=== PATIENT | female | born 1965 | race Caucasian/White ===

== ENCOUNTER 2016-07-29 11:42 | Outpatient (CLI) | payer MEDICAID | END 2016-07-29 11:43 | disposition home or self-care (01) | DX: Z00.00 Encounter for general adult medical examination without abnormal findings (principal) ==

== ENCOUNTER 2019-11-06 13:12 | Outpatient (CLI) | payer OTHER | END 2019-11-06 13:13 | disposition EMS.NT | LOC: EMS 13:12 | PROVIDERS: ATTEND Surgery | DX: R05 Cough (principal); X02.1XXA Exposure to smoke in controlled fire in building or structure, initial encounter; Y93.G3 Activity, cooking and baking; Y92.000 Kitchen of unspecified non-institutional (private) residence as the place of occurrence of the external cause ==

== ENCOUNTER 2023-03-18 08:54 | Outpatient (CLI) | payer MEDICAID | END 2023-03-18 08:55 | disposition home or self-care (01) | LOC: LAB 08:54 | PROVIDERS: ATTEND Physician Assistant | DX: Z79.01 Long term (current) use of anticoagulants (principal); Z95.1 Presence of aortocoronary bypass graft | CPT/HCPCS: 36416; 85610 ==

== ENCOUNTER 2023-04-15 08:45 | Outpatient (CLI) | payer MEDICAID ==
[2023-04-15 09:05] LABS: BASOPHILS # (AUTO) 0.1 10^3/uL (0.0-0.1); BASOPHILS % (AUTO) 1.3 %; EOSINOPHILS # (AUTO) 0.3 10^3/uL (0.0-0.7); EOSINOPHILS % (AUTO) 4.2 %; HCT - HEMATOCRIT 49.2 % (37.0-47.0); HGB - HEMOGLOBIN 15.4 g/dL (12.0-16.0); LYMPHOCYTES # (AUTO) 3.5 10^3/uL (1.5-3.5); LYMPHOCYTES % (AUTO) 45.9 %; MEAN CORPUSCULAR HEMOGLOBIN 27.6 pg (27.0-31.0); MEAN CORPUSCULAR HGB CONC 31.3 g/dL (32.0-36.0); MEAN CORPUSCULAR VOLUME 88.3 fL (81.0-99.0); MEAN PLATELET VOLUME 11.1 fL (7.9-10.8); MONOCYTES # (AUTO) 0.4 10^3/uL (0.0-1.0); MONOCYTES % (AUTO) 4.9 %; NEUTROPHILS # (AUTO) 3.3 10^3/uL (1.5-6.6); NEUTROPHILS % (AUTO) 43.4 %; PLT - PLATELET COUNT 265 10^3/uL (130-450); RED BLOOD COUNT 5.57 10^6/uL (4.20-5.40); RED CELL DISTRIBUTION WIDTH 12.6 % (12.0-15.0); WHITE BLOOD COUNT 7.5 x10^3/uL (4.8-10.8)
[2023-04-15 09:23] LABS: ALBUMIN 4.4 g/dL (3.2-5.5); ALBUMIN/GLOBULIN RATIO 1.7 (1.0-2.2); ALKALINE PHOSPHATASE 73 IU/L (42-121); ALT ALANINE AMINOTRANSFERASE 23 IU/L (10-60); AST ASPARTATE AMINOTRANSFERASE 19 IU/L (10-42); BILIRUBIN,TOTAL 0.7 mg/dL (0.2-1.0); BUN - BLOOD UREA NITROGEN 23 mg/dL (6-20); CALCIUM 9.8 mg/dL (8.5-10.3); CARBON DIOXIDE - CO2 25 mmol/L (21-32); CHLORIDE 106 mmol/L (101-111); CHOLESTEROL 212 mg/dL; GFR - MDRD 57 (>89); GLUCOSE 142 mg/dL (74-104); POTASSIUM 4.1 mmol/L (3.5-4.5); SODIUM 142 mmol/L (135-145); TRIGLYCERIDES 298 mg/dL (48-352); VLDL CHOLESTEROL 60 mg/dL
[2023-04-15 11:35] LABS: ESTIMATED AVERAGE GLUCOSE 157 mg/dL (70-100); HEMOGLOBIN A1c% 7.1 % (4.27-6.07)
[2023-04-16 00:03] LABS: CHOL/HDL RATIO 4.2 (<4.4); HDL CHOLESTEROL 50 mg/dL; LDL CHOLESTEROL,CALCULATED 102 mg/dL
== END 2023-04-15 08:46 | disposition home or self-care (01) ==
LOC: LAB 08:45
PROVIDERS: ATTEND Family Medicine
DX: E11.65 Type 2 diabetes mellitus with hyperglycemia (principal); I48.91 Unspecified atrial fibrillation; Z79.01 Long term (current) use of anticoagulants; Z95.1 Presence of aortocoronary bypass graft
CPT/HCPCS: 36415; 36416; 80050; 80061; 83036; 83721; 83880; 85610

== ENCOUNTER 2023-05-01 15:41 | Outpatient (CLI) | payer MEDICAID | END 2023-05-01 15:42 | disposition home or self-care (01) | LOC: LAB 15:41 | PROVIDERS: ATTEND Physician Assistant | DX: Z79.01 Long term (current) use of anticoagulants (principal); Z95.1 Presence of aortocoronary bypass graft | CPT/HCPCS: 36416; 85610 ==

== ENCOUNTER 2023-05-11 14:14 | Outpatient (CLI) | payer MEDICAID | END 2023-05-11 14:15 | disposition home or self-care (01) | LOC: LAB 14:14 | PROVIDERS: ATTEND Physician Assistant | DX: Z79.01 Long term (current) use of anticoagulants (principal); Z95.1 Presence of aortocoronary bypass graft | CPT/HCPCS: 36416; 85610 ==

== ENCOUNTER 2023-10-11 09:44 | Outpatient (CLI) | payer MEDICAID | END 2023-10-11 23:59 | disposition critical access hospital (66) | LOC: EMS 09:44 | PROVIDERS: ATTEND Emergency Medicine | DX: R07.89 Other chest pain (principal); M25.511 Pain in right shoulder; M54.2 Cervicalgia; R11.0 Nausea | CPT/HCPCS: A0425; A0427; A0999 ==

== ENCOUNTER 2023-10-11 10:04 | Emergency (ER) | payer MEDICAID ==
--- NOTE | 2023-10-11 10:30 | ED Physician Documentation ---
PD HPI CHEST PAIN - Stated complaint Stated Complaint: CP - Chief complaint Chief Complaint: Cardiac - History obtained from History obtained from: Patient - History of Present Illness Timing - onset: Last night Timing - duration: Hours (12) Timing - details: Gradual onset, Still present, Constant Quality: Tightness, Aching Location: Right chest, Right shoulder/arm Radiation: No: Back, Abdominal Improved by: No: Rest Worsened by: Movement, Palpation, Position (on right shoulder lying). No: Inspiration Associated symptoms: Palpitations (she has a feeling of her heart jolting periodically. Has had prior CABG last January without angina/problems. Had intermittent palpitations feeling with Ziopatch about 6 months ago. no reported atrial fib.). No: Shortness of air, Nausea, Feeling faint / dizzy Recently seen: Clinic (had flu shot about 2 weeks ago left deltoid.) Review of Systems Constitutional: denies: Fever Nose: denies: Rhinorrhea / runny nose Throat: denies: Sore throat Respiratory: denies: Cough PD PAST MEDICAL HISTORY - Past Medical History Past Medical History: Yes Cardiovascular: Hypertension, High cholesterol, Coronary artery disease, [place], Valve disorder Respiratory: None Neuro: None Endocrine/Autoimmune: Type 2 diabetes GI: None : None HEENT: None Psych: Depression, Anxiety Musculoskeletal: Osteoarthritis, Fibromyalgia Derm: None - Past Surgical History Past Surgical History: Yes 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: Tubal ligation Cardiovascular: CABG Derm: Skin cancer surgery - Present Medications Home Medications: Ambulatory Orders Medication Instructions Recorded Confirmed Aspirin Chewable [St Pj 81 mg PO DAILY 04/18/22 10/11/23 Aspirin] Atorvastatin Calcium 40 mg PO DAILY 04/18/22 10/11/23 Clopidogrel [Plavix] 75 mg PO DAILY 04/18/22 04/18/22 Duloxetine HCl [Cymbalta] 60 mg PO DAILY 04/18/22 10/11/23 Insulin Lispro [Insulin Lispro 2 - 8 unit SQ TID 04/18/22 10/11/23 Kwikpen U-100] Isosorbide Mononitrate [Isosorbide 30 mg PO DAILY 04/18/22 10/11/23 Mononitrate ER] Metoprolol Succinate 100 mg PO DAILY 04/18/22 10/11/23 Acetaminophen [Acetaminophen Extra 500 mg PO QID PRN #50 tablet 10/11/23 Strength] Empagliflozin [Jardiance] 75 mg PO DAILY 10/11/23 10/11/23 Furosemide [Lasix] 20 mg ORAL DAILY 10/11/23 10/11/23 Levothyroxine Sodium 50 mcg PO DAILY 10/11/23 10/11/23 Meloxicam [Mobic] 7.5 mg PO BID 10 Days #20 tablet 10/11/23 Pregabalin 50 mg PO TID 10/11/23 10/11/23 Spironolactone [Aldactone] 25 mg PO DAILY 10/11/23 10/11/23 - Allergies Allergies/Adverse Reactions: Allergies Allergy/AdvReac Type Severity Reaction Status Date / Time adhesive tape Allergy Rash Verified 10/11/23 10:15 - Social History Does the pt smoke?: No Smoking Status: Former smoker Does the pt drink ETOH?: No Does the pt have substance abuse?: No - Immunizations Immunizations are current?: Yes - POLST Patient has POLST: No PD ED PE NORMAL - Vitals Vital signs reviewed: Yes - General General: Alert and oriented X 3, No acute distress, Other (high bmi) - Neck Neck: Supple, no meningeal sign, No adenopathy - Cardiac Cardiac: RRR, No murmur - Respiratory Respiratory: No respiratory distress, Clear bilaterally, Other (tender right pectoral and suprascapular areas without rash. Tender to light touch as well. ) - Abdomen Abdomen: Soft, Non tender - Derm Derm: Normal color, Warm and dry - Extremities Extremities: No edema, Other (tender anterior lower legs mostly c/w her fibromyalgia per pt. ) - Neuro Neuro: Alert and oriented X 3, No motor deficit, No sensory deficit Results - Vitals Vitals: Vital Signs - 24 hr 10/11/23 10/11/23 10/11/23 11:17 11:45 12:00 Heart Rate 69 68 67 Respiratory 14 20 17 Rate Blood Pressure 94/70 137/81 H 147/89 H O2 Saturation 94 95 95 Oxygen O2 Source Room air - EKG (time done) 10:44 EKG releavant findings:: EKG personally interpreted by author of this note. Relevant findings are: Rate: Rate (enter#) (68) Rhythm: NSR [place]: Normal Intervals: Normal HI QRS: Normal Ischemia: Normal ST segments. No: ST elevation c/w ischemia, ST depression - Labs Labs: Laboratory Tests 10/11/23 10/11/23 10/11/23 10:35 10:35 10:35 WBC 6.9 RBC 4.80 Hgb 13.6 Hct 42.1 MCV 87.7 MCH 28.3 MCHC 32.3 RDW 12.3 Plt Count 252 MPV 10.8 Neut # (Auto) 4.0 Lymph # (Auto) 2.2 [place] # (Auto) 0.4 Eos # (Auto) 0.3 Baso # (Auto) 0.1 Absolute Nucleated RBC 0.00 Nucleated RBC % 0.0 Sodium 141 Potassium 4.4 Chloride 109 Carbon Dioxide 26 Anion Gap 6.0 BUN 28 H Creatinine 0.9 Estimated GFR (MDRD) 64 L Glucose 148 H Calcium 9.3 Magnesium 1.8 Total Bilirubin 1.2 H AST 20 ALT 25 Alkaline Phosphatase 49 Troponin I High Sens 14.9 H* Total Protein 6.0 L Albumin 4.1 Globulin 1.9 L Albumin/Globulin Ratio 2.2 Lipase 19 - Rads (name of study) chest xray Relevant Findings:: Prelim report reviewed, EMP independent interpretation of test (no acute findings) PD Medical Decision Making - ED course Complexity details: considered differential, d/w patient ED course: ECG, CXR, trop (14.9 with normal up to 14.8 in setting of chest pain since last evening) and other labs are normal (mild renal impairment chronic and sugar mild elevated). The character of the pain sounds myofascial. Consider nerve root, muscular, nerve irritation (early shingles, as did have flu shot in past couple weeks so could trigger immune response). She is diabetic and also on lavix, but I do feel anti-inflammatories would be helpful for treatment. So opted for short course Meloxicam (hopefully less stomach bothered) rather than steroid, though did give single dose of Decadron in ED to help with symptoms and also she was concerned about rebound symptoms after the Dilaudid. A dose of steroid should help mitigate that. Painimproved after IV toradol and DIlaudid. Departure - Departure Disposition: 01 Home, Self Care Clinical Impression: Chest pain, Shoulder pain Condition: Stable Record reviewed to determine appropriate education?: Yes Instructions: ED Chest Pain Atypical Unkn Cause Follow-Up: Deirdre Sharp MD [Primary Care Provider] - Prescriptions: Acetaminophen [Acetaminophen Extra Strength] 500 mg PO QID PRN #50 tablet PRN Reason: Pain Meloxicam [Mobic] 7.5 mg PO BID 10 Days #20 tablet Comments: Your EKG, chest x-ray, blood tests are normal without any signs of heart muscle injury, heart failure, fluid in the lungs, collapsed lung etc. Pancreas and liver enzymes/blood tests are normal as well. This sounds like an inflammatory process either of the muscles or nerve root. We could possibly be localized flare of fibromyalgia. There could be a nerve irritation. Could be muscular as well. We do not have test to particularly tell us or differentiate these types of problems. The common treatment however would be anti-inflammatories over the next several days to week with the addition of acetaminophen if needed for pains. Her prescriptions for meloxicam and acetaminophen to your preferred pharmacy. Recheck if not improving well over the next several days and resolved by 4 to 5 days. Follow-up with your primary care or walk-in/ER if new symptoms develop to suggest alternative diagnosis. Examples could be fever, skin rash, coughing, short of breath etc. Contact your cardiology office with regard to the feeling of irregular heartbeat. They may want to have you wear a Zio patch again or such. Your rhythm here has been normal without any irregularity. Forms: PCP List Discharge Date/Time: 10/11/23 12:31
[2023-10-11 10:41] LABS: BASOPHILS # (AUTO) 0.1 10^3/uL (0.0-0.1); BASOPHILS % (AUTO) 0.9 %; EOSINOPHILS # (AUTO) 0.3 10^3/uL (0.0-0.7); EOSINOPHILS % (AUTO) 4.6 %; HCT - HEMATOCRIT 42.1 % (37.0-47.0); HGB - HEMOGLOBIN 13.6 g/dL (12.0-16.0); LYMPHOCYTES # (AUTO) 2.2 10^3/uL (1.5-3.5); LYMPHOCYTES % (AUTO) 31.7 %; MEAN CORPUSCULAR HEMOGLOBIN 28.3 pg (27.0-31.0); MEAN CORPUSCULAR HGB CONC 32.3 g/dL (32.0-36.0); MEAN CORPUSCULAR VOLUME 87.7 fL (81.0-99.0); MEAN PLATELET VOLUME 10.8 fL (7.9-10.8); MONOCYTES # (AUTO) 0.4 10^3/uL (0.0-1.0); MONOCYTES % (AUTO) 5.3 %; NEUTROPHILS % (AUTO) 57.2 %; PLT - PLATELET COUNT 252 10^3/uL (130-450); RED CELL DISTRIBUTION WIDTH 12.3 % (12.0-15.0); WHITE BLOOD COUNT 6.9 x10^3/uL (4.8-10.8)
[2023-10-11] MEDS ORDERED: DEXAMETHASONE 10 MG/ML VIAL IVP STA (10:42)
[2023-10-11 11:05] LABS: ALBUMIN 4.1 g/dL (3.2-5.5); ALBUMIN/GLOBULIN RATIO 2.2 (1.0-2.2); BILIRUBIN,TOTAL 1.2 mg/dL (0.2-1.0); CALCIUM 9.3 mg/dL (8.5-10.3); CREATININE 0.9 mg/dL (0.6-1.3); POTASSIUM 4.4 mmol/L (3.5-4.5)
[2023-10-11 11:07] LABS: TROPONIN I HIGH SENSITIVITY 14.9 ng/L (2.3-14.8)
[2023-10-11] MEDS: KETOROLAC 15 MG/ML VIAL IVP STA (11:14)
[2023-10-11] MEDS: HYDROmorphone 1 MG/ML CARPUJECT IVP STA (11:14)
--- NOTE | 2023-10-11 11:42 | XRAY Report ---
PROCEDURE: Chest 1V INDICATIONS: Chest pain TECHNIQUE: One view of the chest was acquired. COMPARISON: None FINDINGS: Surgical changes and devices: Midline sternotomy wires Lungs and pleura: No pleural effusions or pneumothorax. Lungs are clear. Mediastinum: Mediastinal contours appear normal. Heart size is enlarged. Mild vascular congestion Bones and chest wall: No suspicious bony lesions. Overlying soft tissues appear unremarkable. IMPRESSION: Cardiomegaly and mild vascular congestion Reviewed by: Aj Craig MD on 10/11/2023 10:41 AM ARACELI Approved by: Aj Craig MD on 10/11/2023 10:41 AM AKBRAXTON Station ID: [id number]
[2023-10-11 11:47] VITALS: O2SAT 95
[2023-10-11 12:33] VITALS: BP 147/89
== END 2023-10-11 12:31 | disposition home or self-care (01) ==
LOC: EDUNIT# → ED 10:04 → SUPCPDRO 10:04 → ED 12:31
DX: R07.9 Chest pain, unspecified (principal); M25.511 Pain in right shoulder; I10 Essential (primary) hypertension; E78.00 Pure hypercholesterolemia, unspecified; E11.9 Type 2 diabetes mellitus without complications; I25.2 Old myocardial infarction; I25.810 Atherosclerosis of coronary artery bypass graft(s) without angina pectoris; Z95.1 Presence of aortocoronary bypass graft; Z79.82 Long term (current) use of aspirin; Z79.899 Other long term (current) drug therapy; Z79.02 Long term (current) use of antithrombotics/antiplatelets; Z79.4 Long term (current) use of insulin; Z79.84 Long term (current) use of oral hypoglycemic drugs; Z87.891 Personal history of nicotine dependence
CPT/HCPCS: 36415; 71045; 80053; 83690; 83735; 84484; 85025; 93005; 96374; 96375; 99284; J1170

== ENCOUNTER 2023-12-21 12:20 | Outpatient (CLI) | payer MEDICAID ==
[2023-12-21 12:59] LABS: CALCIUM 9.5 mg/dL (8.5-10.3); POTASSIUM 4.2 mmol/L (3.5-4.5)
[2023-12-21 13:00] LABS: CREATININE,URINE 205.3 mg/dL; MICROALBUM/CREATININE RATIO,UR 25.8 ug/mg (<30.0); MICROALBUMIN,URINE 5.3 mg/dL
[2023-12-21 21:42] LABS: ESTIMATED AVERAGE GLUCOSE 123 mg/dL (70-100); HEMOGLOBIN A1c% 5.9 % (4.27-6.07)
== END 2023-12-21 12:21 | disposition home or self-care (01) ==
LOC: LAB 12:20
PROVIDERS: ATTEND Family Medicine
DX: I50.9 Heart failure, unspecified (principal)
CPT/HCPCS: 36415; 80048; 82043; 82570; 83036

== ENCOUNTER 2024-01-14 08:00 | Outpatient (CLI) | payer MEDICAID ==
[2024-01-14 13:21] LABS: BILIRUBIN,URINE NEGATIVE (NEGATIVE); GLUCOSE, URINE (UA) >=1000 mg/dL (NEGATIVE); KETONES,URINE (UA) TRACE mg/dL (NEGATIVE); LEUKOCYTE ESTERASE, URINE SMALL (NEGATIVE); NITRITE,URINE NEGATIVE (NEGATIVE); OCCULT BLOOD,URINE NEGATIVE (NEGATIVE); PROTEIN,URINE NEGATIVE (NEGATIVE); UROBILINOGEN,URINE 0.2 (NORMAL) E.U./dL (NORMAL)
[2024-01-14 13:22] LABS: CLARITY,URINE CLOUDY (CLEAR)
[2024-01-14 13:42] LABS: BACTERIA,URINE Many /HPF (None Seen); EPITHELIAL CELLS,UR FEW Transitional /HPF (<= Few); RBC,URINE 0-5 /HPF (0-5); SQUAMOUS EPITHELIAL CELL,UR MANY Squamous (<= Few); WBC,URINE >25 /HPF (0-5)
== END 2024-01-14 23:59 | disposition home or self-care (01) ==
LOC: LAB 08:00
PROVIDERS: ATTEND Family Medicine
DX: R82.998 Other abnormal findings in urine (principal)
CPT/HCPCS: 81001; 87086

== ENCOUNTER 2024-01-21 09:29 | Outpatient (CLI) | payer MEDICAID | END 2024-01-21 23:59 | disposition critical access hospital (66) | LOC: EMS 09:29 | DX: R11.2 Nausea with vomiting, unspecified (principal); R10.817 Generalized abdominal tenderness | CPT/HCPCS: A0425; A0429; A0999 ==

== ENCOUNTER 2024-01-21 09:52 | Emergency (ER) | payer MEDICAID ==
[2024-01-21 10:32] LABS: BASOPHILS # (AUTO) 0.1 10^3/uL (0.0-0.1); BASOPHILS % (AUTO) 0.9 %; EOSINOPHILS # (AUTO) 0.1 10^3/uL (0.0-0.7); EOSINOPHILS % (AUTO) 1.8 %; HCT - HEMATOCRIT 45.5 % (37.0-47.0); HGB - HEMOGLOBIN 15.4 g/dL (12.0-16.0); LYMPHOCYTES # (AUTO) 1.7 10^3/uL (1.5-3.5); LYMPHOCYTES % (AUTO) 31.4 %; MEAN CORPUSCULAR HEMOGLOBIN 28.4 pg (27.0-31.0); MEAN CORPUSCULAR HGB CONC 33.8 g/dL (32.0-36.0); MEAN CORPUSCULAR VOLUME 83.9 fL (81.0-99.0); MEAN PLATELET VOLUME 11.4 fL (7.9-10.8); MONOCYTES # (AUTO) 0.3 10^3/uL (0.0-1.0); MONOCYTES % (AUTO) 5.8 %; NEUTROPHILS # (AUTO) 3.3 10^3/uL (1.5-6.6); NEUTROPHILS % (AUTO) 59.7 %; PLT - PLATELET COUNT 269 10^3/uL (130-450); RED BLOOD COUNT 5.42 10^6/uL (4.20-5.40); RED CELL DISTRIBUTION WIDTH 12.4 % (12.0-15.0); WHITE BLOOD COUNT 5.6 x10^3/uL (4.8-10.8)
--- NOTE | 2024-01-21 10:42 | ED Physician Documentation ---
PD HPI ABD PAIN - Stated complaint Stated Complaint: N/V - Chief complaint Chief Complaint: Abd Pain - History obtained from History obtained from: Patient - Additional information Additional information: Patient comes to the emergency department with chief complaint of nausea and vomiting for the last 5 days. She is believes it is from her diabetic med Shahbaz that she recently started. She states that her sugars have been running around 120-130 this week since she has been sick. She denies any diarrhea. No fevers. She states her lungs feel "sore" when she takes a deep breath. She states she has never had vomiting drag out like this before. She states that she has not really been able to hold anything down since the symptoms started. No other complaints at this time. 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 Cardiovascular: CABG Derm: Skin cancer surgery - Present Medications Home Medications: Ambulatory Orders Medication Instructions Recorded Confirmed Aspirin Chewable [St Pj 81 mg PO DAILY 04/18/22 10/11/23 Aspirin] Atorvastatin Calcium 40 mg PO DAILY 04/18/22 10/11/23 Clopidogrel [Plavix] 75 mg PO DAILY 04/18/22 04/18/22 Duloxetine HCl [Cymbalta] 60 mg PO DAILY 04/18/22 10/11/23 Insulin Lispro [Insulin Lispro 2 - 8 unit SQ TID 04/18/22 10/11/23 Kwikpen U-100] Isosorbide Mononitrate [Isosorbide 30 mg PO DAILY 04/18/22 10/11/23 Mononitrate ER] Metoprolol Succinate 100 mg PO DAILY 04/18/22 10/11/23 Acetaminophen [Acetaminophen Extra 500 mg PO QID PRN #50 tablet 10/11/23 Strength] Empagliflozin [Jardiance] 75 mg PO DAILY 10/11/23 10/11/23 Furosemide [Lasix] 20 mg ORAL DAILY 10/11/23 10/11/23 Levothyroxine Sodium 50 mcg PO DAILY 10/11/23 10/11/23 Meloxicam [Mobic] 7.5 mg PO BID 10 Days #20 tablet 10/11/23 Pregabalin 50 mg PO TID 10/11/23 10/11/23 Spironolactone [Aldactone] 25 mg PO DAILY 10/11/23 10/11/23 Ondansetron Odt [Zofran] 4 mg TL Q6H PRN #20 tablet 01/21/24 - Allergies Allergies/Adverse Reactions: Allergies Allergy/AdvReac Type Severity Reaction Status Date / Time adhesive tape Allergy Rash Verified 01/21/24 10:09 - Social History Does the pt smoke?: No Smoking Status: Never smoker Does the pt drink ETOH?: No Does the pt have substance abuse?: No - Immunizations Immunizations are current?: Yes - POLST Patient has POLST: No PD ED PE NORMAL - Vitals Vital signs reviewed: Yes - General General: Alert and oriented X 3, No acute distress, Other (Obese, appears uncomfortable.) - HEENT HEENT: Atraumatic, PERRL - Neck Neck: Supple, no meningeal sign - Cardiac Cardiac: RRR, No murmur - Respiratory Respiratory: No respiratory distress, Clear bilaterally - Abdomen Abdomen: Soft, Non tender (Obese) - Derm Derm: Normal color, Warm and dry, No rash - Extremities Extremities: No deformity, No edema - Neuro Neuro: Other (Alert, grossly intact.) - Psych Psych: Normal mood, Normal affect Results - Vitals Vitals: Oxygen O2 Source Room air - Labs Labs: Laboratory Tests 01/21/24 01/21/24 10:27 10:27 WBC 5.6 RBC 5.42 H Hgb 15.4 Hct 45.5 MCV 83.9 MCH 28.4 MCHC 33.8 RDW 12.4 Plt Count 269 MPV 11.4 H Neut # (Auto) 3.3 Lymph # (Auto) 1.7 [place] # (Auto) 0.3 Eos # (Auto) 0.1 Baso # (Auto) 0.1 Absolute Nucleated RBC 0.00 Nucleated RBC % 0.0 Sodium 142 Potassium 3.3 L Chloride 106 Carbon Dioxide 22 Anion Gap 14.0 H BUN 10 Creatinine 0.8 Estimated GFR (MDRD) 73 L Glucose 130 H Calcium 10.3 Total Bilirubin 2.8 H AST 22 ALT 90 H Alkaline Phosphatase 55 Total Protein 7.3 Albumin 4.8 Globulin 2.5 Albumin/Globulin Ratio 1.9 Lipase 12 PD Medical Decision Making - ED course Complexity details: reviewed results, re-evaluated patient, considered diffe rential, d/w patient ED course: The patient was treated symptomatically with IV fluids and Zofran, and worked up with labs, which were unremarkable. The pt's abdomen was benign on exam, and I did not feel imaging was indicated. We have discussed the need for follow-up with her primary doctor to discuss her meds if she thinks she is having adverse side effects of her current regimen. We have also discussed the usual indications for return. Departure - Departure Disposition: Home, Self Care Clinical Impression: Vomiting Qualifiers: Vomiting type: bilious vomiting Nausea presence: with nausea Qualified Code(s): R11.14 - Bilious vomiting Condition: Stable Instructions: ED Nausea Vomiting Prescriptions: Ondansetron Odt [Zofran] 4 mg TL Q6H PRN #20 tablet PRN Reason: Nausea / Vomiting Comments: You have been treated for your nausea today. Your labs look fairly good. I have sent a prescription to the [facility] pharmacy for some nausea medications. Please pick them up and take as needed. Forms: PCP List Discharge Date/Time: 01/21/24 12:50
[2024-01-21 10:49] LABS: ALBUMIN 4.8 g/dL (3.2-5.5); ALBUMIN/GLOBULIN RATIO 1.9 (1.0-2.2); BILIRUBIN,TOTAL 2.8 mg/dL (0.2-1.0); CALCIUM 10.3 mg/dL (8.5-10.3); CREATININE 0.8 mg/dL (0.6-1.3); POTASSIUM 3.3 mmol/L (3.5-4.5); TOTAL PROTEIN 7.3 g/dL (6.4-8.9)
[2024-01-21] MEDS: DROPERIDOL 5 MG/2 ML VIAL IM STA (12:23)
[2024-01-21] MEDS: SODIUM CHLORIDE 0.9% 1,000 ML IV STA (12:29)
[2024-01-21] MEDS: DROPERIDOL 5 MG/2 ML VIAL IVP STA (12:29)
[2024-01-21 12:52] VITALS: BP 144/68; O2SAT 99
== END 2024-01-21 12:50 | disposition home or self-care (01) ==
LOC: EDUNIT# → ED 09:52
DX: R11.14 Bilious vomiting (principal); E11.9 Type 2 diabetes mellitus without complications; Z79.84 Long term (current) use of oral hypoglycemic drugs; I10 Essential (primary) hypertension; E78.00 Pure hypercholesterolemia, unspecified; I25.10 Atherosclerotic heart disease of native coronary artery without angina pectoris; I25.2 Old myocardial infarction; M79.7 Fibromyalgia; E66.9 Obesity, unspecified; Z95.1 Presence of aortocoronary bypass graft; Z79.02 Long term (current) use of antithrombotics/antiplatelets; Z79.899 Other long term (current) drug therapy
CPT/HCPCS: 36415; 80053; 83690; 85025; 93005; 96372; 99283; 99284